=== PATIENT | female | born 1970 | race Caucasian/White ===

== ENCOUNTER 2020-06-02 08:00 | Outpatient (CLI) | payer OTHER | END 2020-06-02 23:59 | disposition home or self-care (01) | LOC: LAB.R 08:00 | PROVIDERS: ATTEND Physician Assistant Medical | DX: R39.15 Urgency of urination (principal) | CPT/HCPCS: 87077; 87086; 87181 ==

== ENCOUNTER 2020-11-07 08:26 | Outpatient (CLI) | payer OTHER | END 2020-11-07 08:27 | disposition home or self-care (01) | LOC: COV 08:26 | PROVIDERS: ATTEND Family Medicine | DX: Z20.822 Contact with and (suspected) exposure to COVID-19 (principal) ==